=== PATIENT | male | born 1995 | race Caucasian/White ===

== ENCOUNTER 2024-11-11 18:14 | Emergency (ER) | payer SELFPAY ==
[2024-11-11] MEDS ORDERED: Dexamethasone 10 MG/ML VIAL ONE (19:58)
[2024-11-11] MEDS ORDERED: Amoxicillin/Potassium Clav 875 MG TAB ONE (19:58)
[2024-11-11] MEDS ORDERED: Ketorolac Tromethamine 30 MG (1 mL) VIAL ONE (19:58)
== END 2024-11-11 20:11 | disposition home or self-care (01) ==
LOC: CSHERS 18:14
DX: J02.0 Streptococcal pharyngitis (principal)
CPT/HCPCS: 87430; 96372; 99283; J1100; J1885